=== PATIENT | male | born 1970 | race Two or more races ===

== ENCOUNTER 2017-03-12 09:50 | Emergency (ER) | payer SELFPAY ==
[~2017-03-12] VITALS: Ht 170.2 cm; Wt 99.8 kg
--- NOTE | 2017-03-12 10:10 | NUR ---
PATIENT PRESENTS TO ER C/O FEVER, BODY ACHES, AND HEADACHE. PATIENT IS A/OX 4. BREATHING EVEN AND UNLABORED ON ROOM AIR. NO SOB. VITALS STABLE. SAFETY AND COMFORT MEASURES IN PLACE. AWAITING MD ORDERS.
--- NOTE | 2017-03-12 10:25 | NUR ---
STREP CULTURE OBTAINED AND SENT TO LAB.
[2017-03-12] MEDS ORDERED: ACETAMINOPHEN ES 500 MG TABLET ONE (11:47)
[2017-03-12] MEDS ORDERED: ACETAMINOPHEN ES 500 MG TABLET PO ONE (12:00)
[2017-03-12 12:17] VITALS: BP 114/72
--- NOTE | 2017-03-12 12:18 | NUR ---
Patient discharged to home in stable condition. Written and verbal after care instructions given. Patient verbalizes understanding of instruction.
== END 2017-03-12 12:18 | disposition home or self-care (01) ==
LOC: ER 09:53
DX: J02.0 Streptococcal pharyngitis (principal); E11.9 Type 2 diabetes mellitus without complications; E78.5 Hyperlipidemia, unspecified
CPT/HCPCS: 87880; 99283; A4606; Z7610; 86403-TC